=== PATIENT | female | born 1970 | race Caucasian/White ===

== ENCOUNTER 2019-07-05 16:40 | Emergency (ER) | payer MEDICAID ==
[~2019-07-05] VITALS: Ht 160 cm; Wt 101.2 kg
[~2019-07-05 16:40] MED LIST: ALBUTEROL
--- NOTE | 2019-07-05 16:48 | NUR ---
PATIENT AMBULATED TO BED 12
[2019-07-05 16:51] VITALS: BP 134/78
--- NOTE | 2019-07-05 16:52 | NUR ---
C/O R ARM PAIN UPON AWAKENING THIS AM. DENEIS TRUAMA OR INJUR. NO OBVIOUS DEFORMITY. PAIN 05/24. PALPABLE RIGHT RADIAL PULSE. CAP REFILL <3 SECONDS. +ROM WITH PAIN. VSS [id number]. BED IS DOWN, LOCKED, BED RAIL X 1, ERMD TO SEE PT. PMH- ASTHMA Addendum: 07/05/19 at 1654 by [email or web address] R ARM, WRIST, AND HAND
--- NOTE | 2019-07-05 17:35 | NUR ---
DR LOZADA AT BEDSIDE
[2019-07-05] MEDS ORDERED: KETOROLAC 30 MG/ML VIAL IM ONE (17:40)
--- NOTE | 2019-07-05 17:51 | NUR ---
TORADOL IM ADMINISTERED ORDERED
[2019-07-05 18:06] VITALS: BP 139/82
--- NOTE | 2019-07-05 18:06 | NUR ---
Patient discharged with v/s stable. Written and verbal after care instructions given and explained. Patient alert, oriented and verbalized understanding of instructions. Ambulatory with steady gait. All questions addressed prior to discharge. ID band removed. Patient advised to follow up with PMD. Rx of TYLENOL, MOTRIN given. Patient educated on indication of medication including possible reaction and side effects. Opportunity to ask questions provided and answered. SPLINT APPLIED BY LOUISA CASH
== END 2019-07-05 18:05 | disposition home or self-care (01) ==
LOC: MED 16:40
DX: G56.01 Carpal tunnel syndrome, right upper limb (principal); J45.909 Unspecified asthma, uncomplicated; Z79.51 Long term (current) use of inhaled steroids
CPT/HCPCS: 29125; 96372; 99283; J1885

== ENCOUNTER 2019-09-13 07:44 | Emergency (ER) | payer MEDICAID ==
[~2019-09-13] VITALS: Ht 160 cm; Wt 98.1 kg
[2019-09-13 07:48] VITALS: BP 138/81
--- NOTE | 2019-09-13 07:50 | NUR ---
PT TAKEN TO ER BED 12
--- NOTE | 2019-09-13 07:53 | NUR ---
PT TO ED WITH C/O RT SHOULDER PAIN. DENIES RECENT INJURY OR TRAUMA. PT STATES "I THINK ITS A MUSCLE SPASM" ROM LIMITED DUE TO PAIN. CMS INTACT. IN BED FOR MD WELCH.
--- NOTE | 2019-09-13 08:05 | NUR ---
RECEIVED REPORT FROM ANGELIQUE MACK
[2019-09-13] MEDS ORDERED: KETOROLAC 60 MG/2 ML VIAL IM ONE (08:35)
--- NOTE | 2019-09-13 08:42 | NUR ---
PT TO XRAY VIA W/C
--- NOTE | 2019-09-13 08:59 | NUR ---
PT BACK FROM XRAY VIA W/C
--- NOTE | 2019-09-13 09:45 | NUR ---
Patient discharged with v/s stable. Written and verbal after care instructions given and explained. Patient alert, oriented and verbalized understanding of instructions. Ambulatory with steady gait. All questions addressed prior to discharge. ID band removed. Patient advised to follow up with PMD. Rx of NAPROSYN given. Patient educated on indication of medication including possible reaction and side effects. Opportunity to ask questions provided and answered. WITH GRANDON (UNDERAGE) AT SIDE. WILL BE PICKED UP BY ANOTHER FAMILY MEMBER.
[2019-09-13 09:46] VITALS: BP 127/80
== END 2019-09-13 09:45 | disposition home or self-care (01) ==
LOC: MED 07:44
DX: S43.401A Unspecified sprain of right shoulder joint, initial encounter (principal); J45.909 Unspecified asthma, uncomplicated; Z98.890 Other specified postprocedural states; Z79.899 Other long term (current) drug therapy; X58.XXXA Exposure to other specified factors, initial encounter; Y93.89 Activity, other specified; Y92.89 Other specified places as the place of occurrence of the external cause; Y99.8 Other external cause status
CPT/HCPCS: 73030; 96372; 99283; J1885

== ENCOUNTER 2019-11-24 11:25 | Emergency (ER) | payer MEDICAID, OTHER ==
[~2019-11-24] VITALS: Ht 162.6 cm; Wt 96.2 kg
[2019-11-24 11:48] VITALS: BP 138/83
--- NOTE | 2019-11-24 11:53 | NUR ---
PT TO BED 4 WITH STEADY GAIT
--- NOTE | 2019-11-24 12:20 | NUR ---
Dr. Hicks is evaluating the patient at bedside.
--- NOTE | 2019-11-24 12:21 | NUR ---
49 YR OLD FEMALE C/O CARPAL TUNNEL FLARE TO R WRIST PAIN WORSE SINCE SUNDAY. PT HAD THIS PROBLEM FOR OVER 5 MONTHS. PT HAD A BRACE ON RT HAND AND HAD BEEN TAKEN NAPROXEN W/O RELIEF PMH- CARPAL TUNNEL, ASTHMA
[2019-11-24] MEDS ORDERED: KETOROLAC 15 MG/ML VIAL IM ONE (12:25)
[2019-11-24 12:54] VITALS: BP 118/75
--- NOTE | 2019-11-24 12:55 | NUR ---
Patient discharged with v/s stable. Written and verbal after care instructions given and explained. Patient alert, oriented and verbalized understanding of instructions. Ambulatory with steady gait. All questions addressed prior to discharge. ID band removed. Patient advised to follow up with PMD. Rx of Flexeril given. Patient educated on indication of medication including possible reaction and side effects. Opportunity to ask questions provided and answered.
== END 2019-11-24 12:55 | disposition home or self-care (01) ==
LOC: MED 11:25
DX: G56.01 Carpal tunnel syndrome, right upper limb (principal); J45.909 Unspecified asthma, uncomplicated; Z79.899 Other long term (current) drug therapy
CPT/HCPCS: 96372; 99283; J1885

== ENCOUNTER 2020-08-07 14:42 | Emergency (ER) | payer OTHER, SELFPAY ==
[~2020-08-07] VITALS: Ht 160 cm; Wt 98.4 kg
[2020-08-07 14:55] VITALS: BP 122/90
--- NOTE | 2020-08-07 15:01 | NUR ---
50 y/o female from home states she tested + for covid 19 today, asymptomatic. PT states she wants to know if she should quarantine. VSS medhx: asthma, COPD
--- NOTE | 2020-08-07 15:06 | NUR ---
Dr Whitfield in tent examining pt
[2020-08-07 15:25] VITALS: BP 122/90
--- NOTE | 2020-08-07 15:25 | NUR ---
Patient discharged with v/s stable. Written and verbal after care instructions given and explained. Patient verbalized understanding. Ambulatory with steady gait. All questions addressed prior to discharge. Advised to follow up with PMD. Pt advised to quarantine for 14 day, verbalizes understanding
== END 2020-08-07 15:25 | disposition home or self-care (01) ==
LOC: MED 14:42
DX: U07.1 COVID-19 (principal); J44.9 Chronic obstructive pulmonary disease, unspecified; Z98.890 Other specified postprocedural states; Z79.899 Other long term (current) drug therapy
CPT/HCPCS: 99281

== ENCOUNTER 2021-10-30 10:43 | Emergency (ER) | payer OTHER, SELFPAY ==
[~2021-10-30] VITALS: Ht 160 cm; Wt 100.2 kg
[2021-10-30 11:06] VITALS: BP 100/53
[2021-10-30] MEDS ORDERED: AZITHROMYCIN 250 MG TAB PO ONE (11:30)
[2021-10-30] MEDS ORDERED: methylPREDNISolone SS 125 MG in WATER STERILE 2 ML IM ONE (11:30)
[2021-10-30] MEDS ORDERED: ALBUTEROL SULFATE/IPRATROPIU 3 ML SOL IH ONE (11:40)
--- NOTE | 2021-10-30 11:52 | NUR ---
[facility] THERAPY AND RESPIRATORY DRUGS GIVEN ORDERED ENCOURAGED PATIENT FOR INTERMITTENT DEEP BREATHING DURING THERAPY (OUTSIDE/TENT)
[2021-10-30] MEDS ORDERED: ONDANSETRON 4 MG ODT PO ONE (11:55)
[2021-10-30] MEDS ORDERED: methylPREDNISolone SS 125 MG/2 ML VIAL ONE (11:56)
[2021-10-30] MEDS ORDERED: WATER STERILE 0 ML MC ONE (11:56)
--- NOTE | 2021-10-30 12:08 | NUR ---
51/F BIB SELF WITH C/O COUGH, SOB, HEADACHE AND BODY ACHES SINCE SUNDAY. REPORTS NAUSEA AND ONE EPISODE OF VOMITING UPON ARRIVAL TO ED TODAY, DENIES RECENT SICK CONTACTS. DENIES CP, FEVERS.
--- NOTE | 2021-10-30 12:21 | NUR ---
NOVEL SWAB COLLECTED AND WALKED TO LAB.
[2021-10-30 12:52] LABS: BASOPHILS % (AUTO) 0.4 % (0.0-2.0); HEMATOCRIT 40.4 % (36-48); HEMOGLOBIN 13.6 g/dL (12.0-16.0); LYMPHOCYTES % (AUTO) 27.7 % (20.5-51.1); MEAN CORPUSCULAR HEMOGLOBIN 31 pg (27-31); MEAN CORPUSCULAR HGB CONC 34 g/dL (33-37); MEAN CORPUSCULAR VOLUME 91.8 fL (80-94); MONOCYTES # (AUTO) 0.3 K/uL (0.8-1.0); MONOCYTES % (AUTO) 7.8 % (1.7-9.3); NEUTROPHILS # (AUTO) 2.3 K/uL (1.8-7.7); NEUTROPHILS % (AUTO) 63.1 % (42.2-75.2); PLATELET COUNT (AUTO) 171 K/uL (140-450); RED CELL DISTRIBUTION WIDTH 13.2 % (11.6-13.7); WHITE BLOOD COUNT (AUTO) 3.7 K/uL (4.8-10.8)
[2021-10-30 13:12] LABS: ANION GAP 13.8 (8-16); CARBON DIOXIDE 27.7 mmol/L (21-32); POTASSIUM 3.5 mmol/L (3.5-5.1)
[2021-10-30] MEDS ORDERED: BENZ200C4 PO (13:27)
[2021-10-30] MEDS ORDERED: INHA1SPA74 MC (13:27)
[2021-10-30] MEDS ORDERED: PRED20TA5 PO (13:27)
[2021-10-30] MEDS ORDERED: AZIT250T4 PO (13:27)
[2021-10-30 14:22] VITALS: BP 100/53
--- NOTE | 2021-10-30 14:22 | NUR ---
Patient discharged with v/s stable. Written and verbal after care instructions given and explained. Patient alert, oriented and verbalized understanding of instructions. Ambulatory with steady gait. All questions addressed prior to discharge. ID band removed. Patient advised to follow up with PMD. Rx of ZITHROMAX Z PACK, BENZONATATE, PROCARE SPACER WITH ADULT MASK, AND DELTASONE given. Patient educated on indication of medication including possible reaction and side effects. Opportunity to ask questions provided and answered.
== END 2021-10-30 14:22 | disposition home or self-care (01) ==
LOC: MED 10:43
DX: J45.909 Unspecified asthma, uncomplicated (principal); Z20.822 Contact with and (suspected) exposure to COVID-19; J44.9 Chronic obstructive pulmonary disease, unspecified; I10 Essential (primary) hypertension; Z79.899 Other long term (current) drug therapy
CPT/HCPCS: 71045; 80048; 85025; 94640; 96372; 99284; J2930; Q0162; U0003

== ENCOUNTER 2021-11-07 13:00 | Inpatient (IN) | payer OTHER, SELFPAY ==
[~2021-11-07] VITALS: Ht 160 cm; Wt 98.4 kg
[~2021-11-07 13:00] MED LIST changes: +AZIT250T4 PO; +BENZ200C4 PO; +INHA1SPA74 MC; +PRED20TA5 PO
[2021-11-07 13:46] VITALS: BP 103/70
--- NOTE | 2021-11-07 14:01 | NUR ---
PT AMBULATED TO ER BED 3
[2021-11-07] MEDS ORDERED: ALBUTEROL SULFATE/IPRATROPIU 3 ML SOL IH ONE (14:15)
[2021-11-07] MEDS ORDERED: methylPREDNISolone SS 125 MG in WATER STERILE 2 ML IV ONE (14:15)
[2021-11-07] MEDS ORDERED: WATER STERILE 10 ML MC ONE (14:27)
[2021-11-07] MEDS ORDERED: methylPREDNISolone SS 125 MG/2 ML VIAL ONE (14:27)
--- NOTE | 2021-11-07 14:36 | NUR ---
[facility] THERAPY AND RESPIRATORY DRUG GIVEN ORDERED ENCOURAGED PATIENT FOR INTERMITTENT DEEP BREATHING DURING THERAPY
--- NOTE | 2021-11-07 14:47 | NUR ---
ABG PO2 47.3; POST [facility] THERAPY PLACED ON SUPPLEMENTAL OXYGEN AT [address] DESIREE ROSARIO NOTIFIED
[2021-11-07 15:00] LABS: BASOPHILS # (AUTO) 0.1 K/uL (0.00-0.22); EOSINOPHILS # (AUTO) 0.4 K/uL (0-0.4); EOSINOPHILS % (AUTO) 5.8 % (0.0-4.0); HEMATOCRIT 36.9 % (36-48); HEMOGLOBIN 12.4 g/dL (12.0-16.0); LYMPHOCYTES % (AUTO) 14.6 % (20.5-51.1); MEAN CORPUSCULAR HEMOGLOBIN 31 pg (27-31); MEAN CORPUSCULAR HGB CONC 34 g/dL (33-37); MEAN CORPUSCULAR VOLUME 90.8 fL (80-94); MONOCYTES # (AUTO) 0.8 K/uL (0.8-1.0); MONOCYTES % (AUTO) 11.4 % (1.7-9.3); NEUTROPHILS # (AUTO) 4.5 K/uL (1.8-7.7); NEUTROPHILS % (AUTO) 67.2 % (42.2-75.2); PLATELET COUNT (AUTO) 254 K/uL (140-450); RED BLOOD CELL COUNT(AUTO) 4.06 MIL/uL (4.20-5.40); RED CELL DISTRIBUTION WIDTH 12.9 % (11.6-13.7); WHITE BLOOD COUNT (AUTO) 6.7 K/uL (4.8-10.8)
[2021-11-07 15:22] LABS: ANION GAP 12.9 (8-16); CARBON DIOXIDE 28.9 mmol/L (21-32); CREATININE 0.9 mg/dL (0.6-1.3); POTASSIUM 3.8 mmol/L (3.5-5.1)
[2021-11-07] MEDS ORDERED: cefTRIAXone 2,000 MG in DEXTROSE 5% 100 ML IV ONE (15:25)
[2021-11-07 15:28] LABS: ALBUMIN 2.6 g/dL (3.4-5.0); TOTAL BILIRUBIN 0.6 mg/dL (0.0-1.0)
--- NOTE | 2021-11-07 15:35 | NUR ---
51 y/o female, c/o sob for 2 days, pt states she takes nebulizer albuterol tx at home, no relief. pt states her pulse oximeter reading at home was 82% ra. pt was placed on 2L nc, saturation at 90% at this time. denies nausea, vomiting, diarrhea. skin is pink/warm/dry. a&o x4 with even and steady gait. lungs wheezing bl, heart rate even and regular. Pt denies any fever, cp, or cough or anyone sick at home at this time. Patient states pain is 0/10 at this time. patient positioned for comfort. Hob elevated. Bed down. Ermd made aware of pt. pmh: copd, asthma med: nebulizer albuterol nka
--- NOTE | 2021-11-07 16:14 | NUR ---
graham swabbed at this time
[2021-11-07] MEDS ORDERED: cefTRIAXone 2,000 MG VIAL ONE (16:17)
[2021-11-07] MEDS ORDERED: MAG SULF 2000 MG/WATER PREMIX 50 ML IV PRN (16:45)
[2021-11-07] MEDS ORDERED: POTASSIUM CHLORIDE 10 MEQ TABER PO PRN (16:45)
[2021-11-07] MEDS ORDERED: MORPHINE SULFATE 4 MG/ML SYR IVP PRN (16:45)
[2021-11-07] MEDS ORDERED: MAGNESIUM OXIDE 400 MG TAB PO PRN (16:45)
[2021-11-07] MEDS ORDERED: HYDROcodone/APAP 5/325 MG 1 TAB TAB PO PRN (16:45)
[2021-11-07] MEDS ORDERED: ACETAMINOPHEN 325 MG TAB PO PRN (16:45)
[2021-11-07] MEDS ORDERED: ONDANSETRON 4 MG/2 ML VIAL IVP PRN (16:45)
[2021-11-07] MEDS ORDERED: KCL 20 MEQ/WATER INJ PREMIX 200 ML IV PRN (16:45)
--- NOTE | 2021-11-07 18:05 | NUR ---
pt ambulated to the bathroom with even and steady gait at this time
--- NOTE | 2021-11-07 18:14 | NUR ---
pt requested food at this time. pt was given sandwhich, crackers and orange juice. cardiac diet in orders, informed pt that food tray would be coming for dinner.
[2021-11-07] MEDS: ALBUTEROL SULFATE/IPRATROPIU 3 ML SOL IH SCH (19:00)
[2021-11-07] MEDS ORDERED: AZITHROMYCIN 500 MG INJ VIAL IV ONE ×2 (19:14→20:54)
[2021-11-07] MEDS: methylPREDNISolone SS 40 MG/ML VIAL IVP SCH (19:37)
--- NOTE | 2021-11-07 19:38 | NUR ---
Pt report given to adelina pro. Transfer of care at this time.
[2021-11-07] MEDS: AZITHROMYCIN 500 MG in DEXTROSE 5% 250 ML IV SCH (21:06)
--- NOTE | 2021-11-07 22:07 | NUR ---
PT RESTING COMFORTABLY IN BED AT THIS TIME. PT HAS EQUAL CHEST RISE AND FALL; HOB RAISED; BED IN LOWEST POSITION; AND RAIL UP X1. PT IS BREATHING NORMALLY WITH NO SIGNS OF EFFORT ON 2 L/MIN NASAL CANULA.
[2021-11-08] MEDS: methylPREDNISolone SS 40 MG/ML VIAL IVP SCH ×4 (00:45→17:30)
[2021-11-08] MEDS: ALBUTEROL SULFATE/IPRATROPIU 3 ML SOL IH SCH ×4 (01:00→19:00)
--- NOTE | 2021-11-08 01:50 | NUR ---
DR CHAIDEZ NOTIFIED ABOUT CRITICAL LAB VALUE VIA TEXT AT THIS TIME. LACTIC ACID 2.2. NO NEW ORDER AT THIS TIME.
--- NOTE | 2021-11-08 03:58 | NUR ---
PT GOT UP TO USE THE RESTROOM WITHOUT HER OXYGEN, PT STATES SHE GETS SHORT OF BREATH WHEN SHE WALKS.
--- NOTE | 2021-11-08 07:22 | NUR ---
GAVE TRANSFER OF CARE REPORT TO MAC MACK.
--- NOTE | 2021-11-08 07:28 | NUR ---
REPORT RECEIVED FROM MARTINA MADDEN FOR CONTINUITY OF CARE.
--- NOTE | 2021-11-08 08:00 | NUR ---
PATIENT AMBULATED TO RESTROOM W/ STEADY GAIT.
--- NOTE | 2021-11-08 08:05 | NUR ---
PATIENT AMBULATED BACK TO BED, NO SIGNS OF DISTRESS NOTED AT THIS TIME. CONNECTED PATIENT BACK TO BEDSIDE MONITOR.
--- NOTE | 2021-11-08 08:06 | NUR ---
REPORT CALLED TO MARTINA PINZON FOR ADMIT TO TELE.
--- NOTE | 2021-11-08 08:20 | NUR ---
Patient will be admitted to care of DR CABELLO. Admited to TELEMETRY. Will go to room 116. Belongings list completed. Report to MARTINA PINZON.
[2021-11-08 08:24] LABS: ALBUMIN 2.5 g/dL (3.4-5.0); CREATININE 0.7 mg/dL (0.6-1.3); MAGNESIUM 2.1 mg/dL (1.8-2.4); POTASSIUM 4.4 mmol/L (3.5-5.1); TOTAL BILIRUBIN 0.3 mg/dL (0.0-1.0)
[2021-11-08 08:30] LABS: BASOPHILS % (AUTO) 0.1 % (0.0-2.0); HEMATOCRIT 36.1 % (36-48); HEMOGLOBIN 12.1 g/dL (12.0-16.0); LYMPHOCYTES % (AUTO) 13.4 % (20.5-51.1); MEAN CORPUSCULAR HEMOGLOBIN 31 pg (27-31); MEAN CORPUSCULAR HGB CONC 34 g/dL (33-37); MEAN CORPUSCULAR VOLUME 91.3 fL (80-94); MONOCYTES # (AUTO) 0.2 K/uL (0.8-1.0); MONOCYTES % (AUTO) 2.8 % (1.7-9.3); NEUTROPHILS # (AUTO) 6.5 K/uL (1.8-7.7); NEUTROPHILS % (AUTO) 83.7 % (42.2-75.2); PLATELET COUNT (AUTO) 317 K/uL (140-450); RED BLOOD CELL COUNT(AUTO) 3.96 MIL/uL (4.20-5.40); WHITE BLOOD COUNT (AUTO) 7.8 K/uL (4.8-10.8)
--- NOTE | 2021-11-08 08:30 | NUR ---
RECEIVED PT FROM THE ED BY CATRACHO BY YU ROB RN IN STABLE CONDITION. PT AMBULATED TO THE BED WITH A STEADY GAIT. PT ON 2L NC SATING AT 98%. PT VITALS OBTAINED. PT PLACED ON TELE MONITOR SHOWING SR. PT HAS ALL HER BELONGINGS. PT DENIES SOB AT THIS TIME. ALL LEANNA MEDICATION ADMINISTERED PER MD ORDER. SPOKE WITH PTS DAUGHTER OVER THE PHONE AT BEDSIDE AND ANSWERED ALL QUESTIONS. ALL SAFETY MEASURES IN PLACE, CALL LIGHT WITHIN REACH. WILL CONTINUE TO MONITOR.
[2021-11-08] MEDS: DOCUSATE SODIUM 100 MG GELCAP PO SCH (08:52)
[2021-11-08] MEDS: ENOXAPARIN 40 MG/0.4 ML SYR SUBQ SCH (08:52)
[2021-11-08 08:55] LABS: CARBON DIOXIDE 25.2 mmol/L (21-32)
[2021-11-08 10:35] VITALS: BP 103/59
--- NOTE | 2021-11-08 13:14 | NUR ---
PATIENT HAS BEEN SCREENED AND CATEGORIZED MODERATE NUTRITION RISK. PATIENT WILL BE SEEN WITHIN 3-5 DAYS OF ADMISSION. / [address]
[2021-11-08 13:31] LABS: ANION GAP 10.8 (8-16)
[2021-11-08 16:00] VITALS: BP 125/69
[2021-11-08] MEDS: AZITHROMYCIN 500 MG in DEXTROSE 5% 250 ML IV SCH (17:30)
--- NOTE | 2021-11-08 18:54 | NUR ---
PT CALLED REPORTING RIGHT WRIST 22G IV IS HURTING, STOP INFUSION AND PT REPORTS SEVERE PAIN. IV DISCONTINUED AND NEW IV STARTED IN 22G RIGHT AC. RESTARTED ABX. PT SITTING UP IN BED EATING DINNER ON 2L. ALL SAFETY MEASURES IN PLACE. ALL NEEDS MET THROUGHOUT SHIFT. CONTINUITY OF CARE WILL BE ENDORSED TO BALLING MACHINE OPERATOR
--- NOTE | 2021-11-08 22:49 | NUR ---
DUONEB HHN TX NOT ADMINISTERED DUE TO COVID R/O PROTOCOL
[2021-11-08 22:55] VITALS: BP 103/59
--- NOTE | 2021-11-09 | NUR ---
PT RESTING IN BED RR EVEN AND UNLABORED WITH EQUAL CHEST RISE.NAD. UP AMBULATES TO BATHROOM INDEPENDENT. COVID + ISOLATION. O2 2L/ NC. ON O2 [id number]%. CALL LIGHT WITHIN REACH .ALL SAFETY MEASURES IN PLACE. ALL NEEDS MET THISHIFT.
[2021-11-09] MEDS: ALBUTEROL SULFATE/IPRATROPIU 3 ML SOL IH SCH ×3 (01:00→09:16)
[2021-11-09 04:00] VITALS: BP 118/71
[2021-11-09] MEDS: methylPREDNISolone SS 40 MG/ML VIAL IVP SCH ×4 (05:50→18:46)
[2021-11-09 07:17] LABS: BASOPHILS % (AUTO) 0.1 % (0.0-2.0); HEMATOCRIT 35.1 % (36-48); HEMOGLOBIN 11.7 g/dL (12.0-16.0); LYMPHOCYTES # (AUTO) 1.6 K/uL (2.5-16.5); LYMPHOCYTES % (AUTO) 10.2 % (20.5-51.1); MEAN CORPUSCULAR HEMOGLOBIN 30 pg (27-31); MEAN CORPUSCULAR HGB CONC 33 g/dL (33-37); MEAN CORPUSCULAR VOLUME 90.5 fL (80-94); MONOCYTES # (AUTO) 0.5 K/uL (0.8-1.0); MONOCYTES % (AUTO) 3.1 % (1.7-9.3); NEUTROPHILS # (AUTO) 13.7 K/uL (1.8-7.7); NEUTROPHILS % (AUTO) 86.6 % (42.2-75.2); PLATELET COUNT (AUTO) 380 K/uL (140-450); RED BLOOD CELL COUNT(AUTO) 3.88 MIL/uL (4.20-5.40); RED CELL DISTRIBUTION WIDTH 12.9 % (11.6-13.7); WHITE BLOOD COUNT (AUTO) 15.9 K/uL (4.8-10.8)
[2021-11-09 07:38] LABS: ANION GAP 10.4 (8-16); CARBON DIOXIDE 30.6 mmol/L (21-32); CREATININE 0.8 mg/dL (0.6-1.3); MAGNESIUM 2.3 mg/dL (1.8-2.4); TOTAL BILIRUBIN 0.2 mg/dL (0.0-1.0)
[2021-11-09 07:51] LABS: ALBUMIN 2.5 g/dL (3.4-5.0)
[2021-11-09 08:00] VITALS: BP 95/61
--- NOTE | 2021-11-09 08:00 | NUR ---
RECEIVED REPORT FROM CERTIFIED TEACHER ASSISTANT FOR CONTINUITY OF CARE. PATIENT ALERT AWAKE ORIENTED X4, NOT IN ANY DISTRESS NOTED. ON MONITOR SHOWS SR. ON 02 2L NC SATURATION OF 92%, WITH IV RIGHT AC GAUGE 22 SALINE LOCK DRY AND INTACT. DENIES PAIN AT THIS TIME. DROPLET PRECAUTION OBSERVED. WILL CONTINUE TO MONITOR.
[2021-11-09] MEDS: DOCUSATE SODIUM 100 MG GELCAP PO SCH (08:30)
[2021-11-09] MEDS: ENOXAPARIN 40 MG/0.4 ML SYR SUBQ SCH (08:34)
--- NOTE | 2021-11-09 09:00 | NUR ---
DUE MEDICATIONS GIVEN. PATIENT TRYING TO REMOVED OXYGEN AND VERBALIZED THAT SHE FEELS BETTER, CHECK O2 SAT 92%. WILL CONTINUE TO MONITOR.
[2021-11-09 12:00] VITALS: BP 128/63
--- NOTE | 2021-11-09 14:00 | NUR ---
DR. CABELLO CAME AND GOT ORDER TO DOWNGRADE PATIENT.
[2021-11-09 16:00] VITALS: BP 118/71
[2021-11-09] MEDS: AZITHROMYCIN 500 MG in DEXTROSE 5% 250 ML IV SCH (17:15)
--- NOTE | 2021-11-09 19:30 | NUR ---
REPORT GIVEN TO THE SENIOR FIELD ENGINEER FOR CONTINUITY OF CARE. PATIENT IN STABLE CONDITION.
--- NOTE | 2021-11-09 19:31 | NUR ---
RECEIVED BEDSIDE REPORT FROM DAY SHIFT RN FOR CONTINUITY OF CARE. PT IS ON NC 2L. PT HAS RIGHT WRIST 22 GAUGE SALINE LOCK. PT IS NOT IN ANY DISTRESS. CALL LIGHT WITHIN REACH. ALL SAFETY MEASURES TAKEN. WILL CONTINUE TO MONITOR THE PT.
[2021-11-09 20:00] VITALS: BP 113/64
--- NOTE | 2021-11-09 22:00 | NUR ---
PT IS AWAKE ON THE PHONE. PT IS NOT IN ANY DISTRESS AND HAS NO COMPLAINS AT THIS TIME. CALL LIGHT WITHIN REACH. ALL SAFETY MEASURES TAKEN. WILL CONTINUE TO OBSERVE THE PT.
--- NOTE | 2021-11-10 | NUR ---
SLEEPING COMFORTABLY IN BED. RESPIRATION EVEN AND [id number].
[2021-11-10] MEDS: methylPREDNISolone SS 40 MG/ML VIAL IVP SCH ×5 (00:18→23:57)
--- NOTE | 2021-11-10 00:20 | NUR ---
ALL DUE MEDS GIVEN. NO ADVERSE REACTION NOTED. WILL CONTINUE TO OBSERVE THE PT.
[2021-11-10] MEDS: ALBUTEROL SULFATE/IPRATROPIU 3 ML SOL IH SCH ×4 (01:00→19:00)
--- NOTE | 2021-11-10 01:30 | NUR ---
PT IS SLEEPING COMFORTABLY IN BED. PT IS NOT IN ANY DISTRESS. BREATHING RHYTHMIC AND SYMMETRICAL. CALL LIGHT WITHIN REACH. ALL SAFETY MEASURES TAKEN. WILL CONTINUE TO MONITOR THE PATIENT.
[2021-11-10 04:00] VITALS: BP 114/63
[2021-11-10 07:16] LABS: BASOPHILS % (AUTO) 0.1 % (0.0-2.0); HEMATOCRIT 33.4 % (36-48); HEMOGLOBIN 11.3 g/dL (12.0-16.0); LYMPHOCYTES # (AUTO) 1.5 K/uL (2.5-16.5); LYMPHOCYTES % (AUTO) 14.9 % (20.5-51.1); MEAN CORPUSCULAR HEMOGLOBIN 30 pg (27-31); MEAN CORPUSCULAR HGB CONC 34 g/dL (33-37); MEAN CORPUSCULAR VOLUME 89.7 fL (80-94); MONOCYTES # (AUTO) 0.3 K/uL (0.8-1.0); MONOCYTES % (AUTO) 3.3 % (1.7-9.3); NEUTROPHILS # (AUTO) 8.2 K/uL (1.8-7.7); NEUTROPHILS % (AUTO) 81.7 % (42.2-75.2); PLATELET COUNT (AUTO) 388 K/uL (140-450); RED BLOOD CELL COUNT(AUTO) 3.73 MIL/uL (4.20-5.40); RED CELL DISTRIBUTION WIDTH 12.8 % (11.6-13.7)
--- NOTE | 2021-11-10 07:22 | NUR ---
ENDORSED PT TO DAY SHIFT RN FOR CONTINUITY OF CARE. PT IS STABLE.
--- NOTE | 2021-11-10 07:35 | NUR ---
RECEIVED PT FROM NIGHT RN, PT IS AWAKE AND SEATED ON THE BED WITH SIDE RAILS UP AND CALL LIGHT WITHIN REACH, IV LINE NOTED ON THE RT WRIST G. 22 ON SALINE LOCK, PT IS ON O2 2L NC, SATURATING AT 92%, SAFETY PRECAUTION ENFORCED, NO SIGN OF DISTRESS NOTED, ON ISOLATION FOR COVID POSITIVE, AND WILL CONTINUE TO MONITOR PT.
[2021-11-10 08:00] VITALS: BP 116/64
[2021-11-10 10:22] LABS: ALBUMIN 2.4 g/dL (3.4-5.0); ANION GAP 11.8 (8-16); CARBON DIOXIDE 28.8 mmol/L (21-32); CREATININE 0.7 mg/dL (0.6-1.3); MAGNESIUM 2.1 mg/dL (1.8-2.4); POTASSIUM 4.6 mmol/L (3.5-5.1); TOTAL BILIRUBIN 0.2 mg/dL (0.0-1.0)
[2021-11-10] MEDS: DOCUSATE SODIUM 100 MG GELCAP PO SCH (10:23)
[2021-11-10] MEDS: ENOXAPARIN 40 MG/0.4 ML SYR SUBQ SCH (10:26)
--- NOTE | 2021-11-10 10:26 | NUR ---
PT WAS GIVEN THE SCHEDULED AM MEDICATIONS NOW, PARAMETER CHECKED, TOLERATED AND WILL CONTINUE TO MONITOR PT.
--- NOTE | 2021-11-10 13:24 | NUR ---
PT WAS GIVEN SOLU-MEDROL IV PUSH NOW.
--- NOTE | 2021-11-10 13:35 | NUR ---
found patient on room air- patient stated that she had it off for over 30 min. patients saturations remained between 89-91 on room air. no distress noted on room air, gave patient breathing treatment - patient stated she needed a new nebulizer machine at home.
--- NOTE | 2021-11-10 14:01 | NUR ---
PT WAS GIVEN AN INCENTIVE SPIROMETER NOW AND P CAN TOLERATE INSPIRED VOLUME OF UP TO 2000. PT SATURATING BET 89%- 90% ON ROOM AIR
[2021-11-10] MEDS ORDERED: remdesivir COMMUNICATION ORDER 1 EA MISC MC PRN (15:10)
[2021-11-10] MEDS ORDERED: remdesivir CLINICAL MONITORING 1 EA MISC MC PRN (15:20)
[2021-11-10 16:00] VITALS: BP 105/62
[2021-11-10] MEDS ORDERED: REMDESIVIR. 200 MG in NACL 0.9% 100 ML IV SCH (17:00)
--- NOTE | 2021-11-10 17:13 | NUR ---
PT WAS GIVEN REMDESIVIR IVPB NOW.
[2021-11-10] MEDS: AZITHROMYCIN 500 MG in DEXTROSE 5% 250 ML IV SCH (18:41)
--- NOTE | 2021-11-10 18:41 | NUR ---
PT WAS GIVEN AZITHROMYCIN IV AND SOLUMEDROL IV PUSH NOW.
--- NOTE | 2021-11-10 18:51 | NUR ---
DC PLANNING PATIENT IS A 51-YEAR-OLD FEMALE ADMITTED IN THE [facility]/ED ON 11/09/2021 DUE TO SHORTNESS OF BREATH WITH POSITIVE COVID-19. PT. HAS MEDICAL HISTORY OF SIGNIFICANT FOR COPD, SW CONTACT PATIENT VIA PHONE CALL AT AT TO DISCUSS AND GATHER PATIENT'S COLLATERAL INFORMATION. REPORTED HAS FAMILY SUPPORT, REPORTED THAT HER DAUGHTER IRINA IS HER EMERGENCY CONTACT AND REPORTED HAVING A POWER OF RETIREMENT MANAGER. PATIENT REPORTED NOT HAVING ANY ISSUES FOR GETTING OR TAKING HER PRESCRIBED MEDICATIONS, REPORTED GETTING HER MEDICATIONS FORM THE [facility] IN [place] SEND BY MAIL TO HER HOUSE. ON PATIENT REPORTED THAT SHE RECENTLY ON 12/08/2021 SHE SAW MD FORD AT THE [facility] IN [facility]. PATIENT REPORTED HAVING ONLY A NEBULIZER DME AND REPORTED BEEN INDEPENDENT AND ABLE TO AMBULATE ON HER OWN. SW INFORMED PATIENT THAT A FOLLOW UP APPOINTMENT WILL BE SCHEDULED BY THESE BIRTHING NURSE FOR PATIENT TO SEE HER PCP WITHIN 7 DAYS OF DISCHARGE FROM [facility]. PATIENT AGREED AND REPORTED THAT HER PCP IS . PATIENT STATED THAT HER DAUGHTER IRINA WILL BE PICKING HER UP AND TAKING HER BACK HOME WHEN SHE IS READY TO DC FROM [facility]. SW THANKED PATIENT FOR THE INFORMATION PROVIDED AND ENDED THE CALL. SW WILL FOLLOW UP NEEDED
--- NOTE | 2021-11-10 19:35 | NUR ---
ENDORSED PT TO NIGHT RN FOR CONTINUITY OF CARE.
--- NOTE | 2021-11-10 19:36 | NUR ---
RECD. RESTING IN BED, AWAKE, A/OX4. RESPIRATION EVEN AND UNLABORED. ON 02 AT 2 LITERS VIA N/C, 02 SAT - 93%. VERBALIZED SHE HAS DRY COUGH, AND VERY EAGER TO GO HOME. ABLE TO AMBULATE INDEPENDENTLY TO THE BR. DENIES PAIN 0/10.
--- NOTE | 2021-11-10 20:00 | NUR ---
DISCUSSED PLAN OF CARE WITH NOLAN MELENDEZ LVN AND WILL CONTINUE WITH PLAN OF CARE .
--- NOTE | 2021-11-10 21:00 | NUR ---
WATCHING TV. RESPIRATION EVEN AND UNLABORED. CALL LIGHT IN REACH.
[2021-11-11] VITALS: BP 128/71
--- NOTE | 2021-11-11 04:00 | NUR ---
ON HER RIGHT SIDE, COMFORTABLY ASLEEP.
--- NOTE | 2021-11-11 06:00 | NUR ---
AWAKE, IN BED. WENT TO THE BR TO VOID. BACK TO BED, STATED SHE WAS ABLE TO SLEEP WELL.
[2021-11-11] MEDS: methylPREDNISolone SS 40 MG/ML VIAL IVP SCH ×2 (06:08→11:33)
--- NOTE | 2021-11-11 07:00 | NUR ---
RESPIRATORY STATUS REMAIN STABLE. WILL ENDORSE TO AM SHIFT NURSE FOR CONTINUITY OF CARE.
[2021-11-11 07:38] LABS: BASOPHILS % (AUTO) 0.3 % (0.0-2.0); HEMATOCRIT 32.9 % (36-48); HEMOGLOBIN 11.1 g/dL (12.0-16.0); LYMPHOCYTES # (AUTO) 1.5 K/uL (2.5-16.5); LYMPHOCYTES % (AUTO) 15.8 % (20.5-51.1); MEAN CORPUSCULAR HEMOGLOBIN 30 pg (27-31); MEAN CORPUSCULAR HGB CONC 34 g/dL (33-37); MONOCYTES # (AUTO) 0.4 K/uL (0.8-1.0); MONOCYTES % (AUTO) 4.2 % (1.7-9.3); NEUTROPHILS # (AUTO) 7.6 K/uL (1.8-7.7); NEUTROPHILS % (AUTO) 79.7 % (42.2-75.2); PLATELET COUNT (AUTO) 359 K/uL (140-450); RED BLOOD CELL COUNT(AUTO) 3.65 MIL/uL (4.20-5.40); RED CELL DISTRIBUTION WIDTH 12.8 % (11.6-13.7); WHITE BLOOD COUNT (AUTO) 9.5 K/uL (4.8-10.8)
[2021-11-11 07:50] LABS: ALBUMIN 2.2 g/dL (3.4-5.0); ANION GAP 10.5 (8-16); CARBON DIOXIDE 28.5 mmol/L (21-32); CREATININE 0.7 mg/dL (0.6-1.3); MAGNESIUM 2.2 mg/dL (1.8-2.4); TOTAL BILIRUBIN 0.2 mg/dL (0.0-1.0)
[2021-11-11 08:00] VITALS: BP 129/64
[2021-11-11] MEDS: ALBUTEROL SULFATE/IPRATROPIU 3 ML SOL IH SCH ×2 (08:36→13:58)
[2021-11-11] MEDS: DOCUSATE SODIUM 100 MG GELCAP PO SCH (08:49)
[2021-11-11] MEDS: ENOXAPARIN 40 MG/0.4 ML SYR SUBQ SCH (08:56)
[2021-11-11] MEDS ORDERED: DEXA6TAB2 PO (15:51)
[2021-11-11] MEDS ORDERED: APIX5TAB PO (15:53)
[2021-11-11] MEDS ORDERED: REMDESIVIR. 100 MG in NACL 0.9% 100 ML IV SCH (17:00)
--- NOTE | 2021-11-11 17:01 | NUR ---
Patient refused azithromycin and remdesivir despite education of med benefits and infection control. Patient states that she just wants the IV line out and go home. Right AC peripheral IV removed, cannula intact, site covered with dry gauze and tape. Written and verbal discharge instructions provided to patient who verbalized understanding and was able to repeat back instructions (discharge meds, droplet isolation, PCP f/u).
--- NOTE | 2021-11-11 17:10 | NUR ---
Patient discharged at this time, left unit via wheelchair in room air. No signs of distress. Son at front lobby with private car. All belongings with patient upon departure.
== END 2021-11-11 17:10 | disposition home or self-care (01) | DRG 137 ==
LOC: MED 13:00 → MTU 16:43 → OBSVTOIN 16:43 → INTOOBSV 16:43 → MTU 11-08 06:48 → OBSVTOIN 11-09 16:44
PROVIDERS: ADMIT Hospitalist; ATTEND Hospitalist
PROC: XW033E5 Introduction of Remdesivir Anti-infective into Peripheral Vein, Percutaneous Approach, New Technology Group 5 (ICD-10-PCS; principal; 2021-11-10)
DX: U07.1 COVID-19 (principal); J96.01 Acute respiratory failure with hypoxia; J12.82 Pneumonia due to coronavirus disease 2019; J44.1 Chronic obstructive pulmonary disease with (acute) exacerbation; J45.901 Unspecified asthma with (acute) exacerbation; I10 Essential (primary) hypertension; E66.9 Obesity, unspecified; J44.0 Chronic obstructive pulmonary disease with (acute) lower respiratory infection; Z79.2 Long term (current) use of antibiotics; Z79.899 Other long term (current) drug therapy; Z87.891 Personal history of nicotine dependence; Z68.38 Body mass index [BMI] 38.0-38.9, adult
CPT/HCPCS: 96365; 96366; 96375; 99291; G0378; 36415; 71045; 80053; 83605; 83735; 84484; 85025; 85379; 87040; 93005; 94640; J0456; J0696; J1650; J2920; J2930; J7060; Q0092

== ENCOUNTER 2022-08-13 14:34 | Emergency (ER) | payer OTHER ==
[~2022-08-13] VITALS: Ht 160 cm; Wt 76.2 kg
[~2022-08-13 14:34] MED LIST changes: +APIX5TAB PO; -AZIT250T4 PO; +DEXA6TAB2 PO; -PRED20TA5 PO
--- NOTE | 2022-08-13 14:40 | NUR ---
PT AMB TO BED 11
[2022-08-13 14:41] VITALS: BP 139/77
[2022-08-13] MEDS ORDERED: DEXAMETHASONE 10 MG/ML VIAL IM ONE (14:50)
[2022-08-13] MEDS ORDERED: ALBUTEROL SULFATE/IPRATROPIU 3 ML SOL IH ONE ×2 (14:50→15:10)
--- NOTE | 2022-08-13 15:05 | NUR ---
Lab at bedside to draw blood.
--- NOTE | 2022-08-13 15:15 | NUR ---
RT Hans at bedside to give breathing Tx
[2022-08-13 15:45] LABS: CARBON DIOXIDE 29.2 mmol/L (21-32); CREATININE 0.9 mg/dL (0.6-1.3); POTASSIUM 4.2 mmol/L (3.5-5.1)
--- NOTE | 2022-08-13 16:51 | NUR ---
Patient appears to be resting comfortably in bed. Vital Signs within normal limits. Respirations even and unlabored.
[2022-08-13] MEDS ORDERED: DEC4 PO (17:04)
[2022-08-13 17:17] VITALS: BP 130/71
--- NOTE | 2022-08-13 17:17 | NUR ---
Patient discharged with v/s stable. Written and verbal after care instructions given and explained with teachback. Patient alert, oriented and verbalized understanding of instructions. Ambulatory with steady gait. All questions addressed prior to discharge. ID band removed. Patient advised to follow up with PMD. Rx of decadron given. Patient educated on indication of medication including possible reaction and side effects. Opportunity to ask questions provided and answered.
== END 2022-08-13 17:17 | disposition home or self-care (01) ==
LOC: MED 14:34
DX: J45.901 Unspecified asthma with (acute) exacerbation (principal); J44.9 Chronic obstructive pulmonary disease, unspecified; I10 Essential (primary) hypertension; F17.200 Nicotine dependence, unspecified, uncomplicated; Z79.899 Other long term (current) drug therapy
CPT/HCPCS: 36415; 71045; 80048; 94640; 94760; 99285; J1100; Q0092

== ENCOUNTER 2022-10-02 13:02 | Emergency (ER) | payer OTHER ==
[~2022-10-02] VITALS: Ht 160 cm; Wt 97.1 kg
[~2022-10-02 13:02] MED LIST changes: +DEC4 PO
[2022-10-02 13:24] VITALS: BP 103/78
--- NOTE | 2022-10-02 13:26 | NUR ---
PT AMBULATED TO LOBBY
--- NOTE | 2022-10-02 14:09 | NUR ---
PT AMBULATED TO BED 3
[2022-10-02] MEDS ORDERED: ALBUTEROL SULFATE/IPRATROPIU 3 ML SOL IH ONE (14:10)
--- NOTE | 2022-10-02 14:11 | NUR ---
Pt ambulated to bed 08 with steady/even gait.
--- NOTE | 2022-10-02 14:15 | NUR ---
52/F WALKED IN C/O PRODUCTIVE COUGH, CONGESTION, BODYACHE, AND SORE THROAT ONSET X1 DAY. PATIENT A&OX4, AMBULATORY, STATES SORE THROAT / THROAT BURNING AFTER COUGHING EPISODES. BENADRYL 1200 WITH RELIEF. DENIES FEVER, CHILLS, NAUSEA, VOMITING, CHEST PAIN, SOB. STATES DAUGHTER SICK WITH SIMILAR SYMPTOMS X 1 DAY SELF-RESOLVED. AFEBRILE AT TRIAGE. BED LOCKED IN LOWEST POSITION, SIDE RAILS X 1. PMH: COPD, ASTHMA MEDS: QVAR INHALER, VENTOLIN, ALBUTEROL SOLUTION NKDA SX: DENIES
--- NOTE | 2022-10-02 14:18 | NUR ---
RT at bedside for neb tx
--- NOTE | 2022-10-02 14:38 | NUR ---
Natali and influenza swabs walked to lab and handed to CPT. Anahy
[2022-10-02 15:10] VITALS: BP 112/64
[2022-10-02] MEDS ORDERED: PROM118S5 PO (15:11)
[2022-10-02] MEDS ORDERED: NAPR-1704 PO (15:11)
[2022-10-02] MEDS ORDERED: NIRM1TAB PO (15:25)
[2022-10-02] MEDS ORDERED: TAM75 PO (15:25)
--- NOTE | 2022-10-02 15:46 | NUR ---
Patient discharged with v/s stable. Written and verbal after care instructions given and explained for Upper Respiratory Infection, Adult. Patient alert, oriented and verbalized understanding of instructions. Ambulatory with steady gait. All questions addressed prior to discharge. ID band removed. Patient advised to follow up with PMD. Rx of Tamiflu, Promethazine-Dm, Paxlovid, Naprosyn given. Patient educated on indication of medication including possible reaction and side effects. Opportunity to ask questions provided and answered. Work note given with swab results.
== END 2022-10-02 15:46 | disposition home or self-care (01) ==
LOC: MED 13:02
DX: U07.1 COVID-19 (principal); J45.909 Unspecified asthma, uncomplicated; J44.9 Chronic obstructive pulmonary disease, unspecified; I10 Essential (primary) hypertension; Z79.899 Other long term (current) drug therapy
CPT/HCPCS: 94640; 99283

== ENCOUNTER 2023-06-24 13:43 | Emergency (ER) | payer OTHER ==
[~2023-06-24] VITALS: Ht 160 cm; Wt 97.5 kg
[~2023-06-24 13:43] MED LIST changes: +NAPR-1704 PO; +NIRM1TAB PO; +PROM118S5 PO; +TAM75 PO
[2023-06-24 13:46] VITALS: BP 140/81; PULSE 81; RESP 15; O2SAT 98
[2023-06-24] MEDS ORDERED: KETOROLAC 30 MG/ML VIAL IM ONE (14:10)
[2023-06-24] MEDS ORDERED: LISI1TAB45 PO (14:34)
== END 2023-06-24 14:56 | disposition home or self-care (01) ==
LOC: MED 13:43
DX: M25.562 Pain in left knee (principal); Z79.899 Other long term (current) drug therapy
CPT/HCPCS: 73562; 96372; 99283; J1885